=== PATIENT | female | born 1965 | race Caucasian/White ===

== ENCOUNTER 2018-12-14 12:17 | Emergency (ER) | payer MEDICAID ==
[2018-12-14] MEDS ORDERED: Morphine 2 MG/ML Syringe IVPUSH ONE (13:26)
[2018-12-14] MEDS ORDERED: Ondansetron 4 MG/2 ML SDV IVPUSH ONE (13:26)
--- NOTE | 2018-12-14 13:41 | CR ---
INDICATION: Pain/shortness of breath TECHNIQUE: Chest and right ribs-5 views. COMPARISON: None FINDINGS: Cardiovascular and mediastinum: Within normal limits. Lungs and pleural spaces: Lungs are clear. No pleural effusion. No pneumothorax. Bones and soft tissues: There are nondisplaced fractures of the right posterolateral 6th through 9th ribs. IMPRESSION: Nondisplaced fractures of the right 6th through 9th ribs. No pneumothorax. Dictated by Jhoana Medina MD @ 12/14/2018 1:39:26 PM Dictated by: Jhoana Medina MD @ 12/14/2018 13:39:34 (Electronically Signed)
[2018-12-14] MEDS ORDERED: Promethazine 25 MG/ML SDV IM ONE (13:43)
--- NOTE | 2018-12-14 13:55 | EDM.PDOC ---
ED HPI GENERAL MEDICAL PROBLEM - General Chief Complaint: Respiratory Problem Stated Complaint: PAIN IN RT LUNG. HX OF LUNG COLLAPSE Time Seen by Provider: 12/14/18 13:53 Source of Information: Reports: Patient - History of Present Illness INITIAL COMMENTS - FREE TEXT/NARRATIVE: HISTORY AND PHYSICAL: History of present illness: [Patient has been having some right chest wall pain, she has recent history of a spontaneous pneumo while in [place] 3 weeks prior, he has scar from the chest tube placement from that time this as well healed tact she is tender along the axillary line in the right 4 days ago her dog had jumped up on her and knocked her down she has since had pain she is now concerned about another pneumothorax however no pneumo was found on chest x-ray she does have multiple rib fractures consistent with history and clinical findings] Review of systems: As per history of present illness and below otherwise all systems reviewed and negative. Past medical history: As per history of present illness and as reviewed below otherwise noncontributory. Surgical history: As per history of present illness and as reviewed below otherwise noncontributory. Social history: No reported history of drug or alcohol abuse. Family history: As per history of present illness and as reviewed below otherwise noncontributory. Physical exam: HEENT: Atraumatic, normocephalic, pupils reactive, negative for conjunctival pallor or scleral icterus, mucous membranes moist, throat clear, neck supple, nontender, trachea midline. Lungs: Clear to auscultation, breath sounds equal bilaterally, chest nontender exquisitely tender right axillary line. Heart: S1S2, regular, negative for clicks, rubs, or JVD. Abdomen: Soft, nondistended, nontender. Negative for masses or hepatosplenomegaly. Negative for costovertebral tenderness. Pelvis: Stable nontender. Genitourinary: Deferred. Rectal: Deferred. Extremities: Atraumatic, negative for cords or calf pain. Neurovascular unremarkable. Neuro: Awake, alert, oriented. Cranial nerves II through XII unremarkable. Cerebellum unremarkable. Motor and sensory unremarkable throughout. Exam nonfocal. Diagnostics: [Chest with two-view ribs ] Therapeutics: []1:15 2 mg IV Zofran 8 mg IV 125 mg IM Sarita Zofran Impression: multiple rib fractures on the right ] Definitive disposition and diagnosis as appropriate pending reevaluation and review of above. right ribs Pain Score (Numeric/FACES): 9 - Related Data Allergies Allergy/AdvReac Type Severity Reaction Status Date / Time azithromycin Allergy Nausea Verified 12/14/18 12:20 Home Meds: Home Meds Escitalopram Oxalate [Lexapro] 40 mg PO DAILY 01/31/18 [History] Gabapentin [Neurontin] 600 mg PO Q8H 01/31/18 [History] Losartan/Hydrochlorothiazide [Losartan-HCTZ 50-12.5 MG] 50 mg PO DAILY 01/31/18 [History] QUEtiapine Fumarate [Seroquel] 250 mg PO DAILY 01/31/18 [History] Naproxen 500 mg PO Q12H 7 Days #14 tablet 02/13/18 [Rx] Past Medical History HEENT History: Reports: None Cardiovascular History: Reports: Hypertension Respiratory History: Reports: Pneumonia, Recurrent, Pneumothorax Gastrointestinal History: Reports: None Genitourinary History: Reports: Other (See Below) Other Genitourinary History: renal failure 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 Musculoskeletal History: Reports: Gout Neurological History: Reports: Migraines, Seizure Psychiatric History: Reports: Anxiety, Bipolar, Schizophrenia Endocrine/Metabolic History: Reports: None Hematologic History: Reports: None Immunologic History: Reports: Other (See Below) Other Immunologic History: Hep- C Oncologic (Cancer) History: Reports: None Dermatologic History: Reports: None - Infectious Disease History Infectious Disease History: Reports: Hepatitis C - Past Surgical History Head Surgeries/Procedures: Reports: None HEENT Surgical History: Reports: Adenoidectomy, Tonsillectomy Cardiovascular Surgical History: Reports: None Respiratory Surgical History: Reports: Other (See Below) Other Respiratory Surgeries/Procedures: chest tube placement GI Surgical History: Reports: None Female Surgical History: Reports: None Endocrine Surgical History: Reports: None Neurological Surgical History: Reports: None Musculoskeletal Surgical History: Reports: None Oncologic Surgical History: Reports: None Dermatological Surgical History: Reports: None Social & Family History - Family History Family Medical History: Noncontributory - Tobacco Use Smoking Status *Q: Current Every Day Smoker Years of Tobacco use: 35 Packs/Tins Daily: 0.5 - Caffeine Use Caffeine Use: Reports: Coffee, Soda - Recreational Drug Use Recreational Drug Use: No ED ROS GENERAL - Review of Systems Review Of Systems: See Below ED EXAM, GENERAL - Physical Exam Exam: See Below Course - Vital Signs Last Recorded V/S: Last Vital Signs Temp 97.2 F 12/14/18 12:21 Pulse 96 12/14/18 12:21 Resp 20 12/14/18 12:21 BP 157/91 H 12/14/18 12:21 Pulse Ox 97 12/14/18 12:21 - Orders/Labs/Meds Orders: Active Orders 24 hr Category Date Time Status EKG 12 Lead [EKG Documentation Completion] [RC] STAT Care 12/14/18 13:00 Active Ribs 2V wo Chest Rt [CR] Stat Exams 12/14/18 12:52 Taken Meds: Medications Discontinued Medications Generic Name Dose Route Start Last Admin Trade Name Freq PRN Reason Stop Dose Admin Morphine Sulfate 2 mg 12/14/18 13:26 12/14/18 13:31 Morphine IVPUSH 12/14/18 13:27 2 mg ONETIME ONE Administration Ondansetron HCl 8 mg 12/14/18 13:26 12/14/18 13:31 Zofran IVPUSH 12/14/18 13:27 8 mg ONETIME ONE Administration Promethazine HCl 25 mg 12/14/18 13:43 12/14/18 13:47 Phenergan IM 12/14/18 13:44 25 mg ONETIME ONE Administration Departure - Departure Time of Disposition: 13:55 Disposition: Home, Self-Care 01 Condition: Good Clinical Impression: Multiple rib fractures - Discharge Information Referrals: PCP,None [Primary Care Provider] - Additional Instructions: The following information is given to patients seen in the emergency department who are being discharged to home. This information is to outline your options for follow-up care. We provide all patients seen in our emergency department with a follow-up referral. The need for follow-up, as well as the timing and circumstances, are variable depending upon the specifics of your emergency department visit. If you don't have a primary care physician on staff, we will provide you with a referral. We always advise you to contact your personal physician following an emergency department visit to inform them of the circumstance of the visit and for follow-up with them and/or the need for any referrals to a consulting specialist. The emergency department will also refer you to a specialist when appropriate. This referral assures that you have the opportunity for follow-up care with a specialist. All of these measure are taken in an effort to provide you with optimal care, which includes your follow-up. Under all circumstances we always encourage you to contact your private physician who remains a resource for coordinating your care. When calling for follow-up care, please make the office aware that this follow-up is from your recent emergency room visit. If for any reason you are refused follow-up, please contact the [facility] emergency department at and asked to speak to the emergency department charge nurse. - My Orders Last 24 Hours: My Active Orders 12/14/18 12:52 Ribs 2V wo Chest Rt [CR] Stat 12/14/18 13:00 EKG 12 Lead [EKG Documentation Completion] [RC] STAT - Assessment/Plan Last 24 Hours: My Active Orders 12/14/18 12:52 Ribs 2V wo Chest Rt [CR] Stat 12/14/18 13:00 EKG 12 Lead [EKG Documentation Completion] [RC] STAT
--- NOTE | 2018-12-16 13:51 | CR ---
EXAM DATE: 12/14/18 PATIENT'S AGE: 53 INDICATION: Pain/shortness of breath TECHNIQUE: Chest and right ribs-5 views. COMPARISON: None FINDINGS: Cardiovascular and mediastinum: Within normal limits. Lungs and pleural spaces: Lungs are clear. No pleural effusion. No pneumothorax. Bones and soft tissues: There are nondisplaced fractures of the right posterolateral 6th through 9th ribs. IMPRESSION: Nondisplaced fractures of the right 6th through 9th ribs. No pneumothorax. Dictated by Jhoana Medina MD @ 12/14/2018 1:39:26 PM Dictated by: Jhoana Medina MD @ 12/14/2018 13:39:34 (Electronically Signed) Dictated by: Jhoana Medina MD 12/14/18 at 1339 MTDD
== END 2018-12-14 14:10 | disposition home or self-care (01) ==
LOC: MW.ED 12:17
DX: S22.41XA Multiple fractures of ribs, right side, initial encounter for closed fracture (principal); I10 Essential (primary) hypertension; F31.9 Bipolar disorder, unspecified; F41.9 Anxiety disorder, unspecified; F20.9 Schizophrenia, unspecified; F17.210 Nicotine dependence, cigarettes, uncomplicated; Z98.890 Other specified postprocedural states; Z88.1 Allergy status to other antibiotic agents; Z79.899 Other long term (current) drug therapy; W54.1XXA Struck by dog, initial encounter
CPT/HCPCS: 71045; 71100; 93005; 96372; 96374; 96375; 99285; J2270; J2405; J2550; 99283

== ENCOUNTER 2019-01-13 15:07 | Emergency (ER) | payer MEDICAID ==
--- NOTE | 2019-01-13 15:09 | EDM.PDOC ---
ED HPI GENERAL MEDICAL PROBLEM - General Stated Complaint: HEADACHE Time Seen by Provider: 01/13/19 15:08 Source of Information: Reports: Patient History Limitations: Reports: No Limitations - History of Present Illness INITIAL COMMENTS - FREE TEXT/NARRATIVE: HISTORY AND PHYSICAL: History of present illness: Patient is a 53-year-old female who presents to the emergency room today with complaints of migraine headache. Patient states she does have a long-standing history of migraine headaches and typically takes Fioricet to help with symptoms. She states that she ran out of this medication and therefore has not been able to alleviate her headache pain with [id number] medications. She does have associated light and noise sensitivity. Currently has nausea but no vomiting. She denies any head injury, trauma or falls. Patient denies any fever , chills, headache, change in vision, syncope or near syncope. Denies any chest pain, back pain, shortness of breath or cough. Denies any abdominal pain, nausea , vomiting, diarrhea, constipation or dysuria. Has not noted any blood in urine or stool. Patient has been eating and drinking appropriately. Review of systems: As per history of present illness and below otherwise all systems reviewed and negative. Past medical history: As per history of present illness and as reviewed below otherwise noncontributory. Surgical history: As per history of present illness and as reviewed below otherwise noncontributory. Social history: See social history for further information Family history: As per history of present illness and as reviewed below otherwise noncontributory. Physical exam: General: Well-developed and well-nourished 53-year-old female. Alert and oriented. Nontoxic appearing and in no acute distress. HEENT: Atraumatic, normocephalic, pupils equal and reactive bilaterally, negative for conjunctival pallor or scleral icterus, mucous membranes moist, TMs normal bilaterally, throat clear, neck supple, nontender, trachea midline. No drooling or trismus noted. No meningeal signs. No hot potato voice noted. Lungs: Clear to auscultation, breath sounds equal bilaterally, chest nontender. Heart: S1S2, regular rate and rhythm without overt murmur Abdomen: Soft, nondistended, nontender. Negative for masses or hepatosplenomegaly. Negative for costovertebral tenderness. Skin: Intact, warm, dry. No lesions or rashes noted. Extremities: Atraumatic, moves all extremities per self without difficulty or deficits, negative for cords or calf pain. Neurovascular unremarkable. Neuro: Awake, alert, oriented. Cranial nerves II through XII unremarkable. Cerebellum unremarkable. Motor and sensory unremarkable throughout. Exam nonfocal. Notes: Patient declines the need for head CT. She states that she has had an extensive workup for this while living in [place]. She denies any new or out of the ordinary symptoms. She is requesting that we refill her Fioricet upon discharge. After the IV medication and half a liter bolus she continues to have headache pain stating he has not been alleviated much. She states in the past she has had have narcotic pain medication. We discussed the risks versus benefits of this. Vital signs remained stable. Patient's headache pain is alleviated. We discussed the importance of following up with her primary care provider. Supportive care measures were reviewed and discussed. Voices understanding and is agreeable to plan of care. Denies any further questions or concerns at this time. Diagnostics: None Therapeutics: IV Benadryl, Toradol, Reglan, Zofran, fluids, morphine Prescription: Fioricet Impression: Migraine Plan: 1. Please take your medications as directed. 2. Tylenol and/or ibuprofen as needed for pain management. 3. Follow-up with your primary care provider as we discussed. Return to the ED as needed and as discussed. Definitive disposition and diagnosis as appropriate pending reevaluation and review of above. 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 Musculoskeletal History: Reports: Gout Neurological History: Reports: Migraines, Seizure Psychiatric History: Reports: Anxiety, Bipolar, Schizophrenia Endocrine/Metabolic History: Reports: None Hematologic History: Reports: None Immunologic History: Reports: Other (See Below) Other Immunologic History: Hep- C Oncologic (Cancer) History: Reports: None Dermatologic History: Reports: None - Infectious Disease History Infectious Disease History: Reports: Hepatitis C - Past Surgical History Head Surgeries/Procedures: Reports: None HEENT Surgical History: Reports: Adenoidectomy, Tonsillectomy Cardiovascular Surgical History: Reports: None Respiratory Surgical History: Reports: Other (See Below) Other Respiratory Surgeries/Procedures: chest tube placement GI Surgical History: Reports: None Female Surgical History: Reports: None Endocrine Surgical History: Reports: None Neurological Surgical History: Reports: None Musculoskeletal Surgical History: Reports: None Oncologic Surgical History: Reports: None Dermatological Surgical History: Reports: None Social & Family History - Family History Family Medical History: Noncontributory - Caffeine Use Caffeine Use: Reports: Coffee, Soda ED ROS GENERAL - Review of Systems Review Of Systems: ROS reveals no pertinent complaints other than HPI. - Physical Exam Exam: See Below (See dictation) Course - Vital Signs Last Recorded V/S: Last Vital Signs Temp 97.9 F 01/13/19 15:17 Pulse 92 01/13/19 15:17 Resp 16 01/13/19 15:17 BP 131/80 01/13/19 15:17 Pulse Ox 97 01/13/19 15:17 - Orders/Labs/Meds Orders: Active Orders 24 hr Category Date Time Status Morphine Med 01/13/19 16:48 Once 2 mg IVPUSH ONETIME ONE Meds: Medications Discontinued Medications Generic Name Dose Route Start Last Admin Trade Name Freq PRN Reason Stop Dose Admin Diphenhydramine HCl 50 mg 01/13/19 15:28 01/13/19 16:15 Benadryl IVPUSH 01/13/19 15:29 50 mg ONETIME ONE Administration Sodium Chloride 1,000 mls @ 999 mls/hr 01/13/19 15:28 01/13/19 16:12 Normal Saline IV 01/13/19 16:28 999 mls/hr STAT ONE Administration Ketorolac Tromethamine 30 mg 01/13/19 15:28 01/13/19 16:14 Toradol IVPUSH 01/13/19 15:29 30 mg ONETIME ONE Administration Metoclopramide HCl 10 mg 01/13/19 15:28 01/13/19 16:16 Reglan IV 01/13/19 15:29 10 mg ONETIME ONE Administration Ondansetron HCl 4 mg 01/13/19 15:28 01/13/19 16:14 Zofran IVPUSH 01/13/19 15:29 4 mg ONETIME ONE Administration Departure - Departure Time of Disposition: 16:30 Disposition: Home, Self-Care 01 Clinical Impression: Migraine - Discharge Information Prescriptions: Acetaminophen/Butalbital/Caff [Fioricet 325-50-40 MG] 1 each PO Q4HR PRN #10 tab PRN Reason: Headache Instructions: Migraine Headache, [id number] Referrals: PCP,Unknown [Primary Care Provider] - Additional Instructions: The following information is given to patients seen in the emergency department who are being discharged to home. This information is to outline your options for follow-up care. We provide all patients seen in our emergency department with a follow-up referral. The need for follow-up, as well as the timing and circumstances, are variable depending upon the specifics of your emergency department visit. If you don't have a primary care physician on staff, we will provide you with a referral. We always advise you to contact your personal physician following an emergency department visit to inform them of the circumstance of the visit and for follow-up with them and/or the need for any referrals to a consulting specialist. The emergency department will also refer you to a specialist when appropriate. This referral assures that you have the opportunity for follow-up care with a specialist. All of these measure are taken in an effort to provide you with optimal care, which includes your follow-up. Under all circumstances we always encourage you to contact your private physician who remains a resource for coordinating your care. When calling for follow-up care, please make the office aware that this follow-up is from your recent emergency room visit. If for any reason you are refused follow-up, please contact the [facility] Emergency Department at and asked to speak to the emergency department charge nurse. [facility] [address] [place] [id number] [address] 1. Please take your medications as directed. 2. Tylenol and/or ibuprofen as needed for pain management. 3. Follow-up with your primary care provider as we discussed. Return to the ED as needed and as discussed. - My Orders Last 24 Hours: My Active Orders 01/13/19 16:48 Morphine 2 mg IVPUSH ONETIME ONE - Assessment/Plan Last 24 Hours: My Active Orders 01/13/19 16:48 Morphine 2 mg IVPUSH ONETIME ONE
[2019-01-13] MEDS ORDERED: Sodium Chloride 0.9% 1,000 ML IV ONE (15:28)
[2019-01-13] MEDS ORDERED: Metoclopramide 10 MG/2 ML SDV IV ONE (15:28)
[2019-01-13] MEDS ORDERED: Ondansetron 4 MG/2 ML SDV IVPUSH ONE (15:28)
[2019-01-13] MEDS ORDERED: Ketorolac 30 MG/ML SDV IVPUSH ONE (15:28)
[2019-01-13] MEDS ORDERED: diphenhydrAMINE 50 MG/ML SDV IVPUSH ONE (15:28)
[2019-01-13] MEDS ORDERED: Morphine 2 MG/ML Syringe IVPUSH ONE (16:48)
== END 2019-01-13 17:59 | disposition home or self-care (01) ==
LOC: MW.ED 15:07
DX: G43.909 Migraine, unspecified, not intractable, without status migrainosus (principal); I10 Essential (primary) hypertension; Z88.1 Allergy status to other antibiotic agents
CPT/HCPCS: 96361; 96374; 96375; 99284; J1200; J1885; J2270; J2405; J2765; J7040; 99283

== ENCOUNTER 2019-03-09 15:55 | Emergency (ER) | payer OTHER ==
[2019-03-09] MEDS ORDERED: Ketorolac 60 MG/2 ML SDV IM ONE (16:23)
--- NOTE | 2019-03-09 16:39 | EDM.PDOC ---
ED HPI GENERAL MEDICAL PROBLEM - General Chief Complaint: General Stated Complaint: FOOT/TAILBONE INJURY Time Seen by Provider: 03/09/19 16:14 Source of Information: Reports: Patient History Limitations: Reports: No Limitations - History of Present Illness INITIAL COMMENTS - FREE TEXT/NARRATIVE: HISTORY AND PHYSICAL: History of present illness: Patient is a 53-year-old female who presents to the emergency room with complaints of left foot and tailbone pain. She states last evening she had rolled her ankle and landed on her tailbone. Shortly after she developed left lateral foot pain and tailbone pain. As she was getting up she lost her balance and hit her head on something as she was standing up. She does have some soft tissue swelling noted to her mid forehead. She denies any loss of consciousness , dizziness, change in vision, nausea or vomiting. Review of systems: As per history of present illness and below otherwise all systems reviewed and negative. Past medical history: As per history of present illness and as reviewed below otherwise noncontributory. Surgical history: As per history of present illness and as reviewed below otherwise noncontributory. Social history: See social history for further information Family history: As per history of present illness and as reviewed below otherwise noncontributory. Physical exam: General: Well-developed and well-nourished 53-year-old female. Alert and oriented. Nontoxic appearing and in no acute distress. HEENT: Atraumatic, normocephalic, pupils equal and reactive bilaterally, negative for conjunctival pallor or scleral icterus, mucous membranes moist, TMs normal bilaterally, throat clear, neck supple, nontender, trachea midline. No drooling or trismus noted. No meningeal signs. No hot potato voice noted. Lungs: Clear to auscultation, breath sounds equal bilaterally, chest nontender. Heart: S1S2, regular rate and rhythm without overt murmur Abdomen: Soft, nondistended, nontender. Negative for masses or hepatosplenomegaly. Negative for costovertebral tenderness. Pelvis: Stable nontender. C-spine/Back: No pinpoint vertebral tenderness upon palpation. No crepitus, step -offs or obvious deformities. Paraspinous muscular tenderness to cervical spine with palpation. Patient is ambulatory into the emergency room without difficulty or deficit. Able to rock back on heels and walk on toes. Denies any urinary or fecal incontinence. Denies any numbness, tingling or saddle paresthesia. Skin: Intact, warm, dry. No lesions or rashes noted. Extremities: Left lateral foot pain with palpation with minimal swelling and early bruising. She moves all extremities per self without difficulty or deficits, SEE C-SPINE/BACK for details. Strong pedal and pretibial pulses bilaterally. Neurologically intact. Neurovascular unremarkable. Neuro: Awake, alert, oriented. Cranial nerves II through XII unremarkable. Cerebellum unremarkable. Motor and sensory unremarkable throughout. Exam nonfocal. Notes: During my physical examination the patient is able to freely move about the contact and does slam her legs against the bed as she is really and acting her fall. She is agreeable to imaging at this time. Denies any chance of . Sacrum and coccyx x-ray shows no acute fractures. X-ray of the left foot shows a probable fracture of the medial base of the distal phalanx on the left great toe. Supportive care measures were reviewed and discussed. C-spine shows no acute fractures. All findings were shared with the patient. She was put in a CAM walker boot and crutches. Voices understanding and is agreeable to plan of care. Denies any further questions or concerns at this time. Diagnostics: C-spine X-ray, Sacrum X-ray, Left foot X-ray Therapeutics: Toradol IM Prescription: Corky Impression: Left foot injury, probably great toe fracture Tailbone injury Fall Plan: 1. Rest, ice, elevate the affected extremity. You may want to use a donut seat for comfort with your tailbone pain. 2. Tylenol and/or Ibuprofen as needed for pain management. 3. Follow up with the Orthopedic provider as we discussed. Return to the ED as needed and as discussed. Definitive disposition and diagnosis as appropriate pending reevaluation and review of above. Duration: Day(s): left foot Pain Score (Numeric/FACES): 10 butt Pain Score (Numeric/FACES): 10 forehead Pain Score (Numeric/FACES): 1 - Related Data Allergies Allergy/AdvReac Type Severity Reaction Status Date / Time azithromycin Allergy Nausea Verified 01/13/19 15:21 erythromycin base Allergy Nausea Verified 03/09/19 16:16 Home Meds: Home Meds QUEtiapine Fumarate [Quetiapine Fumarate] 1 tab DAILY 03/09/19 [History] Past Medical History HEENT History: Reports: None Cardiovascular History: Reports: Hypertension Respiratory History: Reports: Pneumonia, Recurrent, Pneumothorax Gastrointestinal History: Reports: None Genitourinary History: Reports: Other (See Below) 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 Musculoskeletal History: Reports: Gout Neurological History: Reports: Migraines, Seizure Psychiatric History: Reports: Anxiety, Bipolar, Schizophrenia Endocrine/Metabolic History: Reports: None Hematologic History: Reports: None Immunologic History: Reports: Other (See Below) Other Immunologic History: Hep- C Oncologic (Cancer) History: Reports: None Dermatologic History: Reports: None - Infectious Disease History Infectious Disease History: Reports: Hepatitis C - Past Surgical History Head Surgeries/Procedures: Reports: None HEENT Surgical History: Reports: Adenoidectomy, Tonsillectomy Cardiovascular Surgical History: Reports: None Respiratory Surgical History: Reports: Other (See Below) Other Respiratory Surgeries/Procedures: chest tube placement GI Surgical History: Reports: None Female Surgical History: Reports: None Endocrine Surgical History: Reports: None Neurological Surgical History: Reports: None Musculoskeletal Surgical History: Reports: None Oncologic Surgical History: Reports: None Dermatological Surgical History: Reports: None Social & Family History - Family History Family Medical History: Noncontributory - Tobacco Use Smoking Status *Q: Current Every Day Smoker Years of Tobacco use: 35 Packs/Tins Daily: 1 - Caffeine Use Caffeine Use: Reports: Coffee, Soda - Recreational Drug Use Recreational Drug Use: No ED ROS GENERAL - Review of Systems Review Of Systems: Comprehensive ROS is negative, except as noted in HPI. ED EXAM, GENERAL - Physical Exam Exam: See Below (See dictation) Course - Vital Signs Last Recorded V/S: Last Vital Signs Temp 97.8 F 03/09/19 16:13 Pulse 84 03/09/19 16:13 Resp 18 03/09/19 16:13 BP 129/87 03/09/19 16:13 Pulse Ox 98 03/09/19 16:13 - Orders/Labs/Meds Meds: Medications Discontinued Medications Generic Name Dose Route Start Last Admin Trade Name Freq PRN Reason Stop Dose Admin Ketorolac Tromethamine 60 mg 03/09/19 16:23 03/09/19 17:14 Toradol IM 03/09/19 16:24 60 mg ONETIME ONE Administration Departure - Departure Time of Disposition: 17:33 Disposition: Home, Self-Care 01 Clinical Impression: Fall Qualifiers: Encounter type: initial encounter Qualified Code(s): W19.XXXA - Unspecified fall, initial encounter Tailbone injury Qualifiers: Encounter type: initial encounter Qualified Code(s): S39.92XA - Unspecified injury of lower back, initial encounter Injury of left foot Qualifiers: Encounter type: initial encounter Qualified Code(s): S99.922A - Unspecified injury of left foot, initial encounter - Discharge Information Instructions: Tailbone Injury, [id number] Referrals: PCP,None [Primary Care Provider] - Forms: ED Department Discharge Additional Instructions: The following information is given to patients seen in the emergency department who are being discharged to home. This information is to outline your options for follow-up care. We provide all patients seen in our emergency department with a follow-up referral. The need for follow-up, as well as the timing and circumstances, are variable depending upon the specifics of your emergency department visit. If you don't have a primary care physician on staff, we will provide you with a referral. We always advise you to contact your personal physician following an emergency department visit to inform them of the circumstance of the visit and for follow-up with them and/or the need for any referrals to a consulting specialist. The emergency department will also refer you to a specialist when appropriate. This referral assures that you have the opportunity for follow-up care with a specialist. All of these measure are taken in an effort to provide you with optimal care, which includes your follow-up. Under all circumstances we always encourage you to contact your private physician who remains a resource for coordinating your care. When calling for follow-up care, please make the office aware that this follow-up is from your recent emergency room visit. If for any reason you are refused follow-up, please contact the [facility] Emergency Department at and asked to speak to the emergency department charge nurse. [facility] [address] [place] [address] [id number] [place] [address]
--- NOTE | 2019-03-09 17:18 | CR ---
Indication: Fell twice in the last 2 days. Technique: Techniquethree views of the cervical spine were obtained. Comparison: None Findings: Reversal normal cervical lordosis identified. The vertebral body heights are well maintained. Intervertebral disc space narrowing is identified at C5-C6. The prevertebral soft tissues are normal. The odontoid is intact. Impression: Reversal the normal cervical lordosis with degenerative changes in the lower cervical spine. No acute fracture. Dictated by Antoinette Bah MD @ Mar 09 2019 5:16PM Signed by Dr. Antoinette Bah @ Mar 09 2019 5:17PM
--- NOTE | 2019-03-09 17:20 | CR ---
Indication: Fall. Technique: Three views of the sacrum and coccyx were obtained. Comparison: None Findings: The alignment of the sacrum and coccyx is grossly normal. No definite fracture is identified. Impression: No definite fracture. Dictated by Antoinette Bah MD @ Mar 09 2019 5:18PM Signed by Dr. Antoinette Bah @ Mar 09 2019 5:19PM
--- NOTE | 2019-03-09 17:20 | CR ---
Indication: Left foot pain. Technique: Two views of the left foot were obtained. Comparison: None Findings: Probable acute fracture of the medial base of the distal phalanx of the left great toe is identified. No other fractures are identified. Os navicularis present. Impression: Probable fracture of the medial base of the distal phalanx of the left great toe. Dictated by Antoinette Bah MD @ Mar 09 2019 5:17PM Signed by Dr. Antoinette Bah @ Mar 09 2019 5:18PM
== END 2019-03-09 18:07 | disposition home or self-care (01) ==
LOC: MW.ED 15:55
DX: S90.32XA Contusion of left foot, initial encounter (principal); S39.92XA Unspecified injury of lower back, initial encounter; I10 Essential (primary) hypertension; F31.9 Bipolar disorder, unspecified; F17.210 Nicotine dependence, cigarettes, uncomplicated; Z79.899 Other long term (current) drug therapy; Z88.1 Allergy status to other antibiotic agents; X50.1XXA Overexertion from prolonged static or awkward postures, initial encounter; W01.10XA Fall on same level from slipping, tripping and stumbling with subsequent striking against unspecified object, initial encounter
CPT/HCPCS: 72040; 72220; 73620; 96372; 99283; J1885

== ENCOUNTER 2019-04-29 12:31 | Emergency (ER) | payer MEDICAID, OTHER ==
--- NOTE | 2019-04-29 12:53 | EDM.PDOC ---
ED HPI GENERAL MEDICAL PROBLEM - General Chief Complaint: Headache Stated Complaint: MIGRAINE Time Seen by Provider: 04/29/19 12:32 Source of Information: Reports: Patient History Limitations: Reports: No Limitations - History of Present Illness INITIAL COMMENTS - FREE TEXT/NARRATIVE: HISTORY AND PHYSICAL: History of present illness: Patient is a 54-year-old female who presents to the emergency room with complaints of a migraine headache. I have seen this patient before for migraines and she had been given a refill on her Fioricet at that time. She states this medication works well for her but she again has since ran out of her medication and is not able to see/establish care with a primary care provider in [place] for 2 weeks. She states she does have some nausea without vomiting associated with this. States the migraine headache is "normal for me" and does not have any new or alarming symptoms associated with that. She also is requesting pain medication for a tailbone injury I had seen her for in February 2019. Denies any new injury or falls related to this tailbone pain. States its bothersome when she sits down for long periods of time. She states she was given some [place] for rib fracture and tailbone injury () and is hoping I can refill this medication today. Patient denies any fever, chills, change in vision, syncope or near syncope. Denies any chest pain, back pain, shortness of breath or cough. Denies any abdominal pain, vomiting, diarrhea, constipation or dysuria. Patient has been eating and drinking appropriately. Review of systems: As per history of present illness and below otherwise all systems reviewed and negative. Past medical history: As per history of present illness and as reviewed below otherwise noncontributory. Surgical history: As per history of present illness and as reviewed below otherwise noncontributory. Social history: See social history for further information Family history: As per history of present illness and as reviewed below otherwise noncontributory. Physical exam: General: Well-developed and well-nourished 54-year-old female. Alert and oriented. Nontoxic-appearing and in no acute distress. HEENT: Atraumatic, normocephalic, pupils equal and reactive bilaterally, negative for conjunctival pallor or scleral icterus, mucous membranes moist, TMs normal bilaterally, throat clear, neck supple, nontender, trachea midline. No drooling or trismus noted. No meningeal signs. No hot potato voice noted. Lungs: Clear to auscultation, breath sounds equal bilaterally, chest nontender. Heart: S1S2, regular rate and rhythm without overt murmur Abdomen: Soft, nondistended, nontender. Skin: Intact, warm, dry. No lesions or rashes noted. C-spine/Back: No pinpoint vertebral tenderness upon palpation. No crepitus, step -offs or obvious deformities. Patient is ambulatory into the emergency room without difficulty or deficit. Able to rock back on heels and walk on toes. Denies any urinary or fecal incontinence. Denies any numbness, tingling or saddle paresthesia. Extremities: Atraumatic, moves all extremities per self without difficulty or deficits, negative for cords or calf pain. Neurovascular unremarkable. Neuro: Awake, alert, oriented. Cranial nerves II through XII unremarkable. Cerebellum unremarkable. Motor and sensory unremarkable throughout. Exam nonfocal. Notes: I informed the patient that she will not be receiving any narcotic pain medication for her migraine headache or her tailbone pain. The last time I saw her for migraine, she was given Benadryl, Toradol, Reglan and Zofran -she now states she has an allergic to Toradol and is declining wanting this medication. We will refill her Fioricet and give her medication while here. Will not refill the [place], give her some diclofenac for her tailbone pain. Strongly encouraged her to follow-up with her primary care provider in [place]. Supportive care measures were reviewed and discussed. Voices understanding and is agreeable to plan of care. Denies any further questions or concerns at this time. Diagnostics: None Therapeutics: Fioricet, Zofran Prescription: Fioricet (#8) Diclofenac Impression: Migraine headache Encounter for medication refill Encounter for pain management Plan: 1. Please use Tylenol and/or Ibuprofen as needed for pain management. 2. Get plenty of Rest. Encourage fluids to prevent dehydration. 3. Refill of Fioricet available at pharmacy for package pick up. 4. Please follow up with your primary care provider for re-evaluation and further medication refills. Return to the ED as needed as discussed. Definitive disposition and diagnosis as appropriate pending reevaluation and review of above. migraine Pain Score (Numeric/FACES): 10 tailbone Pain Score (Numeric/FACES): 10 - Related Data Allergies Allergy/AdvReac Type Severity Reaction Status Date / Time azithromycin Allergy Nausea Verified 01/13/19 15:21 erythromycin base Allergy Nausea Verified 03/09/19 16:16 ketorolac [From Toradol] Allergy Vomiting Verified 04/29/19 13:08 Home Meds: Home Meds QUEtiapine Fumarate [Quetiapine Fumarate] 1 tab DAILY 03/09/19 [History] Butalb/Acetaminophen/Caffeine [Ycjxiw-[id number] 50-300-40] 1 each PO Q4HR PRN #8 capsule 04/29/19 [Rx] Diclofenac Sodium [Voltaren] 75 mg PO BIDMEALS PRN #30 tab.cr 04/29/19 [Rx] Past Medical History HEENT History: Reports: None Cardiovascular History: Reports: Hypertension Respiratory History: Reports: Pneumonia, Recurrent, Pneumothorax Gastrointestinal History: Reports: None Genitourinary History: Reports: Other (See Below) Other Genitourinary History: renal failure [employer]T History: Reports: None Musculoskeletal History: Reports: Gout Neurological History: Reports: Migraines, Seizure Psychiatric History: Reports: Anxiety, Bipolar, Schizophrenia Endocrine/Metabolic History: Reports: None Hematologic History: Reports: None Immunologic History: Reports: Other (See Below) Other Immunologic History: Hep- C Oncologic (Cancer) History: Reports: None Dermatologic History: Reports: None - Infectious Disease History Infectious Disease History: Reports: Hepatitis C - Past Surgical History Head Surgeries/Procedures: Reports: None HEENT Surgical History: Reports: Adenoidectomy, Tonsillectomy Cardiovascular Surgical History: Reports: None Respiratory Surgical History: Reports: Other (See Below) Other Respiratory Surgeries/Procedures: chest tube placement GI Surgical History: Reports: None Female Surgical History: Reports: None Endocrine Surgical History: Reports: None Neurological Surgical History: Reports: None Musculoskeletal Surgical History: Reports: None Oncologic Surgical History: Reports: None Dermatological Surgical History: Reports: None Social & Family History - Family History Family Medical History: Noncontributory - Caffeine Use Caffeine Use: Reports: Coffee, Soda ED ROS GENERAL - Review of Systems Review Of Systems: Comprehensive ROS is negative, except as noted in HPI. - Physical Exam Exam: See Below (See dictation) Course - Vital Signs Last Recorded V/S: Last Vital Signs Temp 97.2 F 04/29/19 13:09 Pulse 76 04/29/19 13:09 Resp 18 04/29/19 13:09 BP 160/103 H 04/29/19 13:09 Pulse Ox 96 04/29/19 13:09 - Orders/Labs/Meds Meds: Medications Discontinued Medications Generic Name Dose Route Start Last Admin Trade Name Freq PRN Reason Stop Dose Admin Acetaminophen/Butalbital/Caffeine 1 tab 04/29/19 13:19 04/29/19 13:26 Fioricet 325-50-40 Mg PO 04/29/19 13:20 1 tab ONETIME ONE Administration Ondansetron HCl 4 mg 04/29/19 13:18 04/29/19 13:26 Zofran Odt PO 04/29/19 13:19 4 mg ONETIME ONE Administration Departure - Departure Time of Disposition: 13:29 Disposition: Home, Self-Care 01 Clinical Impression: Migraine, Encounter for medication refill, Encounter for pain management - Discharge Information Prescriptions: Butalb/Acetaminophen/Caffeine [Bheogp-Mheqbooo-Qqxd 50-300-40] 1 each PO Q4HR PRN #8 capsule PRN Reason: Headache/Pain Diclofenac Sodium [Voltaren] 75 mg PO BIDMEALS PRN #30 tab.cr PRN Reason: Pain Instructions: Migraine Headache, [id number] Referrals: PCP,None [Primary Care Provider] - Forms: ED Department Discharge Additional Instructions: The following information is given to patients seen in the emergency department who are being discharged to home. This information is to outline your options for follow-up care. We provide all patients seen in our emergency department with a follow-up referral. The need for follow-up, as well as the timing and circumstances, are variable depending upon the specifics of your emergency department visit. If you don't have a primary care physician on staff, we will provide you with a referral. We always advise you to contact your personal physician following an emergency department visit to inform them of the circumstance of the visit and for follow-up with them and/or the need for any referrals to a consulting specialist. The emergency department will also refer you to a specialist when appropriate. This referral assures that you have the opportunity for follow-up care with a specialist. All of these measure are taken in an effort to provide you with optimal care, which includes your follow-up. Under all circumstances we always encourage you to contact your private physician who remains a resource for coordinating your care. When calling for follow-up care, please make the office aware that this follow-up is from your recent emergency room visit. If for any reason you are refused follow-up, please contact the [facility] Emergency Department at and asked to speak to the emergency department charge nurse. [facility] [address] [place] [id number] [address] 1. Please use Tylenol and/or Ibuprofen as needed for pain management. 2. Get plenty of Rest. Encourage fluids to prevent dehydration. 3. Refill of Fioricet available at pharmacy for package pick up. 4. Please follow up with your primary care provider for re-evaluation and further medication refills. Return to the ED as needed as discussed. Sepsis Event Note - Focused Exam Vital Signs: Vital Signs Temp Pulse Resp BP Pulse Ox 04/29/19 13:09 97.2 F 76 18 160/103 H 96 Date Exam was Performed: 04/29/19 Time Exam was Performed: 16:08
[2019-04-29] MEDS ORDERED: Ondansetron 4 MG Tab.DIS PO ONE (13:18)
[2019-04-29] MEDS ORDERED: Acetaminophen/Butalbital/Caffeine 325-50-40 MG Tab PO ONE (13:19)
== END 2019-04-29 13:51 | disposition home or self-care (01) ==
LOC: MW.ED 12:31
DX: G43.909 Migraine, unspecified, not intractable, without status migrainosus (principal); Z76.0 Encounter for issue of repeat prescription; M53.3 Sacrococcygeal disorders, not elsewhere classified; I10 Essential (primary) hypertension; M10.9 Gout, unspecified; Z98.890 Other specified postprocedural states; Z88.1 Allergy status to other antibiotic agents; Z88.6 Allergy status to analgesic agent
CPT/HCPCS: 99283; A9270